=== PATIENT | male | born 1980 | race Caucasian/White ===

== ENCOUNTER → 2018-03-01 16:04 | Outpatient (REF) | payer MEDICAID, SELFPAY ==
[2018-03-01 19:18] LABS: Anion Gap 10.7 mmol/L (3-11); BUN 14 mg/dL (7-18); CO2 25.3 mmol/L (21.0-32.0); CREATININE 0.97 mg/dL (0.70-1.30); Calcium 8.8 mg/dL (8.5-10.1); Chloride 103 mmol/L (98-107); Glucose 102 mg/dL (70-100); Potassium 4.6 mmol/L (3.5-5.1); Sodium 139 mmol/L (136-145)
== END ==
LOC: NCHCN 16:04
PROVIDERS: PCP Internal Medicine; Visit Provider Physician Assistant Medical
DX: I10 Essential (primary) hypertension (principal)
CPT/HCPCS: 80048

== ENCOUNTER 2018-05-17 14:26 | Outpatient (CLI) | payer MEDICAID, SELFPAY ==
--- NOTE | 2018-05-17 12:05 | DI.RAD_ITS ---
SYMPTOM/DIAGNOSIS: COUGH, R05 PA AND LATERAL CHEST: Comparison is made with 04/08/10. The heart is normal in size. The lungs are clear. The mediastinal structures and pleura appear intact. CONCLUSION: Normal chest.
== END 2018-05-17 14:46 ==
PROVIDERS: PCP Internal Medicine; Visit Provider Physician Assistant Medical
DX: R05 Cough (principal)
CPT/HCPCS: 71046

== ENCOUNTER 2018-09-17 10:10 | Emergency (ER) | payer MEDICAID, SELFPAY ==
[2018-09-17 10:19] VITALS: BP 165/97; PULSE 80; RESP 16; TEMP 36.6; O2SAT 97
--- NOTE | 2018-09-17 10:31 | W.ED.GENAD ---
Discharge Plan Disposition Patient Disposition: HOME Discharge Details Chief Complaint: Orthopedic Clinical Impression: Severe sprain of right ankle Primary Care Provider: Ezekiel Pardo V ED Provider: Connor Bhatt Home Meds and New Rx's Prescriptions: Continued lisinopril 20 mg Tablet 20 mg PO DAILY RF: 0 Discharge Instructions Instructions: Ankle Sprain (ED) Additional Instructions: Please use ankle stabilizer and crutches. You may bear weight as tolerated. Please take ibuprofen over the counter - dose according to label. Please keep your ankle elevated when not ambulating. If pain persists or does not improve over the next 1 week, please follow-up with orthopedics. Please contact your primary care physician to arrange follow-up. Return to the ER for any worsening or new concerning symptoms. Referrals: Michael Smyth MD [ [facility] STAFF PHYSICIAN] - Medical Decision Making 38-year-old male presents with right ankle pain, swelling, tender lateral malleolus, after inversion injury, slip and fall on ice last night. Patient is neurovascularly intact distally. X-ray of the right ankle reviewed and interpreted by radiology: IMPRESSION: 1. Soft tissue swelling over the medial and lateral malleolus. 2. Distention of the ankle joint capsule consistent with posttraumatic joint effusion and/or ligamentous disruption. 3. 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 Patient offered anti-inflammatory and declined. I am concerned for moderate to severe ankle sprain. Plan to give orthopedic boot and crutches. Patient declined and provided informed refusal to boot. He is agreeable to using lace up ankle splint. He has crutches at home that he plans to use. Usual customary discharge instructions were provided including return to ED precautions and I advised that if pain is not improving over this week he should see an contract management specialist for further diagnostic testing and treatment. HPI General Mode of arrival: ambulatory. Date/Time Provider Initiated Documentation: 09/17/18 10:30. Limitations to Documentation: no limitations. Information obtained by: patient. HPI Narrative: 38-year-old male presents with chief complaint of ankle pain. Patient notes that last night he inverted his right ankle on ice and explains a popping sensation. Pain is now moderate. Improved with ibuprofen. Worse on palpation of his lateral ankle. No associated numbness. Related Data Home Medications Medication Instructions Recorded Confirmed lisinopril 20 mg PO DAILY 09/17/18 09/17/18 Allergies Allergy/AdvReac Type Severity Reaction Status Date / Time No Known Allergies Allergy Unverified 09/17/18 10:22 General Stated Complaint: Orthopedic FLORES: 4 Review of Systems Musculoskeletal Reports as per HPI and Denies tingling Neurologic Denies tingling and Denies paresthesias PFS Social History Smoking and Tabacco status: Never Exam Const General: cooperative, no acute distress, well developed, acute distress and not in distress Orientation: alert and awake Limitations: mental status not altered HENMT Head: normal to inspection and normocephalic Cardio Rate: regular rate Rhythm: regular rhythm Pulses: dorsalis pedis pulses present on the right 2+ Skin General skin exam: no rashes or lesions noted and dry skin Trauma: no lacerations Other: warm Neuro General: alert, awake and oriented x3 Extrem General: clubbing, cyanosis or edema noted Right lower extremity: lower leg Details: no tenderness and ankle Details: tenderness Location: of the lateral malleolus and swelling Details: laterally; no ecchymosis Course Vital Signs Temperature 36.6 C 09/17/18 10:19 Pulse 80 09/17/18 10:19 Respiratory Rate 16 09/17/18 10:19 Blood Pressure 165/97 H 09/17/18 10:19 Pulse Oximetry 97 09/17/18 10:19 Temperature 36.6 C 09/17/18 10:19 Temperature Source Skin 09/17/18 10:19 Pulse 80 09/17/18 10:19 Respiratory Rate 16 09/17/18 10:19 Respiratory Effort Non-Labored 09/17/18 10:19 Blood Pressure 165/97 H 09/17/18 10:19 Blood Pressure Position Sitting 09/17/18 10:19 Pulse Oximetry 97 09/17/18 10:19 Oxygen Delivery Method Room Air 09/17/18 10:19 Oxygen Flow Rate 0 09/17/18 10:19 Pain Level 1 09/17/18 10:19
--- NOTE | 2018-09-17 10:35 | ED.GENADUL_ITS ---
Discharge Plan Disposition Patient Disposition: HOME Discharge Details Chief Complaint: Orthopedic Clinical Impression: Severe sprain of right ankle Primary Care Provider: Ezekiel Pardo V ED Provider: Connor Bhatt Home Meds and New Rx's Prescriptions: Continued lisinopril 20 mg Tablet 20 mg PO DAILY RF: 0 Discharge Instructions Instructions: Ankle Sprain (ED) Additional Instructions: Please use ankle stabilizer and crutches. You may bear weight as tolerated. Please take ibuprofen over the counter - dose according to label. Please keep your ankle elevated when not ambulating. If pain persists or does not improve over the next 1 week, please follow-up with orthopedics. Please contact your primary care physician to arrange follow-up. Return to the ER for any worsening or new concerning symptoms. Referrals: Michael Smyth MD [ [facility] STAFF PHYSICIAN] - Medical Decision Making 38-year-old male presents with right ankle pain, swelling, tender lateral malleolus, after inversion injury, slip and fall on ice last night. Patient is neurovascularly intact distally. X-ray of the right ankle reviewed and interpreted by radiology: IMPRESSION: 1. Soft tissue swelling over the medial and lateral malleolus. 2. Distention of the ankle joint capsule consistent with posttraumatic joint effusion and/or ligamentous disruption. 3. 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 Patient offered anti-inflammatory and declined. I am concerned for moderate to severe ankle sprain. Plan to give orthopedic boot and crutches. Patient declined and provided informed refusal to boot. He is agreeable to using lace up ankle splint. He has crutches at home that he tori ns to use. Usual customary discharge instructions were provided including return to ED precautions and I advised that if pain is not improving over this week he should see an cleaning specialist for further diagnostic testing and treatment. HPI General Mode of arrival: ambulatory . Date/Time Provider Initiated Documentation: 09/17/18 10:30 . Limitations to Documentation: no limitations . Information obtained by: patient . HPI Narrative: 38-year-old male presents with chief complaint of ankle pain. Patient notes that last night he inverted his right ankle on ice and explains a popping sensation. Pain is now moderate. Improved with ibuprofen. Worse on palpation of his lateral ankle. No associated numbness. Related Data Home Medications Medication Instructions Recorded Confirmed lisinopril 20 mg PO DAILY 09/17/18 09/17/18 Allergies Allergy/AdvReac Type Severity Reaction Status Date / Time No Known Allergies Allergy Unverified 09/17/18 10:22 General Stated Complaint: Orthopedic FLORES: 4 Review of Systems Musculoskeletal Reports as per HPI and Denies tingling Neurologic Denies tingling and Denies paresthesias PFSH Social History Smoking and Tabacco status: Never Exam Const General: cooperative, no acute distress, well developed, acute distress and not in distress Orientation: alert and awake Limitations: mental status not altered HENMT Head: normal to inspection and normocephalic Cardio Rate: regular rate Rhythm: regular rhythm Pulses: dorsalis pedis pulses present on the right 2+ Skin General skin exam: no rashes or lesions noted and dry skin Trauma: no lacerations Other: warm Neuro General: alert, awake and oriented x3 Extrem General: clubbing, cyanosis or edema noted Right lower extremity: lower leg Details: no tenderness and ankle Details: tenderness Location: of the lateral malleolus and swelling Details: laterally; no ecchymosis Course Vital Signs Temperature 36.6 C 09/17/18 10:19 Pulse 80 09/17/18 10:19 Respiratory Rate 16 09/17/18 10:19 Blood Pressure 165/97 H 09/17/18 10:19 Pulse Oximetry 97 09/17/18 10:19 Temperature 36.6 C 09/17/18 10:19 Temperature Source Skin 09/17/18 10:19 Pulse 80 09/17/18 10:19 Respiratory Rate 16 09/17/18 10:19 Respiratory Effort Non-Labored 09/17/18 10:19 Blood Pressure 165/97 H 09/17/18 10:19 Blood Pressure Position Sitting 09/17/18 10:19 Pulse Oximetry 97 09/17/18 10:19 Oxygen Delivery Method Room Air 09/17/18 10:19 Oxygen Flow Rate 0 09/17/18 10:19 Pain Level 1 09/17/18 10:19
--- NOTE | 2018-09-17 10:59 | DI.RAD_ITS ---
SYMPTOM/DIAGNOSIS: PAIN, INVERSION INJURY RIGHT ANKLE: Three views. No definite acute fracture or dislocation is seen. Follow up as clinically appropriate. There does appear to be mild soft tissue swelling about the ankle. A joint effusion cannot be excluded. IMPRESSION: No definite acute fracture or dislocation. Follow up as clinically appropriate.
--- NOTE | 2018-09-17 11:06 | DI.VRAD_ITS ---
EXAM: XR Right Ankle Complete, 3 or more Views EXAM DATE/TIME: 09/17/2018 11:00 AM CLINICAL HISTORY: 38 years old, male; Injury or trauma; Fall; Initial encounter; Swelling (edema); Ankle; Right; Patient HX: Pain, ttp lateral, inversion injury. ; Additional info: S/P fall on ice. TECHNIQUE: XR Right ankle 3 or more views. COMPARISON: No relevant prior studies available. FINDINGS: Bones/joints: Distention of the ankle joint capsule consistent with posttraumatic joint effusion and/or ligamentous disruption. 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 Soft tissues: Soft tissue swelling over the medial and lateral malleolus. IMPRESSION: 1. Soft tissue swelling over the medial and lateral malleolus. 2. Distention of the ankle joint capsule consistent with posttraumatic joint effusion and/or ligamentous disruption. 3. 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 Dictated and Authenticated by: Roger Mejia MD. Ordering:SANJEEV Ryan MD
== END 2018-09-17 11:33 | disposition home or self-care (01) ==
PROVIDERS: Emergency Provider Student in an Organized Health Care Education/Training Program; PCP Physician Assistant Medical
DX: S93.401A Sprain of unspecified ligament of right ankle, initial encounter (principal); W00.0XXA Fall on same level due to ice and snow, initial encounter; X50.9XXA Other and unspecified overexertion or strenuous movements or postures, initial encounter; I10 Essential (primary) hypertension
CPT/HCPCS: 99283; 73610; L1902

== ENCOUNTER 2018-11-04 08:14 | Emergency (ER) | payer MEDICAID, SELFPAY ==
--- NOTE | 2018-11-04 08:20 | NUR.NOTE ---
for past 4-5 days PT has had continuous diarrhea as well as abdominal pain PT is concerned that he is dehydrated
[2018-11-04 08:22] VITALS: BP 120/68; PULSE 127; RESP 16; TEMP 36.6
--- NOTE | 2018-11-04 08:33 | ED.GENADUL_ITS ---
Discharge Plan Disposition Patient Disposition: HOME Condition: Improving Discharge Details Chief Complaint: Nausea/Vomit/Diar Clinical Impression: Diarrhea Primary Care Provider: Ezekeil Pardo V ED Provider: Roya Alford Home Meds and New Rx's Prescriptions: Continued lisinopril 20 mg Tablet 20 mg PO DAILY RF: 0 Discharge Instructions Instructions: Acute Diarrhea (ED), Nutrition Tips for Relief of Diarrhea (ED) Additional Instructions: Drink plenty of fluids get plenty of rest. Alternate Tylenol and Motrin as needed and directed for pain. Follow a diet of bananas, rice, applesauce, toast, pretzels or crackers over the next few days if diarrhea still present. Follow-up with your primary care doctor next week for reevaluation. Return immediately to the emergency department with any worsening or new concerning symptoms. Discharge Data Discharge Physician: Roya Alford Medical Decision Making 38-year-old male with history of hypertension who presents with vomiting x1 and multiple episodes of watery brown diarrhea daily for the past 6 days after recent travel from [place]. Patient concerned about food poisoning. Discussed with patient that this may be consistent with food poisoning or traveler's diarrhea. Heart rate 120s. Remainder vitals within normal limits. Patient appears nontoxic. His abdomen is soft and nontender. Due to frequent diarrhea and tachycardia, will place an IV, bolus IV fluids, check standard labs, stool culture for bacterial pathogens and giardia. We will also give a dose of Toradol. As patient's abdomen is soft and nontender, I do not see an indication for abdominal imaging at this time but will reassess at follow-up on labs. 0925 -- labs reviewed and unremarkable. Pt states he feels a little better. 2nd L ivf started. Will obtain a stool culture. Will reassess abdomen. Pt denies abdominal pain at this time. 1020 -- patient feels much better and is requesting to go home. Heart rate 80s. Reassessment of abdomen is soft, nontender. Patient was able to give stool sample. As he has no fever, any diarrhea, with a normal white blood cell count, I do not see an indication for antibiotics and patient is agreeable and he will be notified of stool culture results if positive. Patient denies any nausea. He is instructed to drink plenty of fluids, get plenty of rest, and follow the brat diet. He is instructed to follow-up with his primary care doctor for reevaluation and to return at anytime if worse. Medical Records Medical records reviewed: Yes I reviewed the patient's medical records. Lab Data Lab results reviewed: Yes I reviewed the patient's lab results. Laboratory Tests Range/Units 11/04/18 11/04/18 08:45 08:45 WBC (4.4-10.8) k/cumm 9.98 RBC (4.50-6.00) m/cumm 5.31 Hgb (13.5-17.5) g/dL 16.1 Hct (40.0-50.0) % 45.9 MCV (80-95) fL 86.4 MCH (27.0-33.0) pg 30.3 MCHC (32.0-36.0) g/dL 35.1 RDW (11.8-14.1) % 12.6 Plt Count (130-400) x1000/uL 273 MPV (8.0-11.0) fL 11.0 Immature Gran % 0.6 Neutrophils % 52.5 Lymphocytes % 28.0 Monocytes % 15.8 Eosinophils % 2.6 Basophils % 0.5 Absolute Neutrophils (1.2-6.7) k/cumm 5.24 Absolute Lymphocytes (1.2-3.4) k/cumm 2.79 Absolute Monocytes (0.11-0.7) k/cumm 1.58 H Absolute Eosinophils (0.0-0.7) k/cumm 0.26 Absolute Basophils (0.0-0.2) k/cumm 0.05 Sodium (136-145) mmol/L 134 L Potassium (3.5-5.1) mmol/L 3.5 Chloride (98-107) mmol/L 99 Carbon Dioxide (21.0-32.0) mmol/L 23.6 Anion Gap (3-11) mmol/L 11.4 H BUN (7-18) mg/dL 10 Creatinine (0.70-1.30) mg/dL 1.22 Estimated GFR/1.73 m2 (mL/min/1.73m2) >= 60.00 Glucose (70-100) mg/dL 115 H Calcium (8.5-10.1) mg/dL 7.8 L Total Bilirubin (0.2-1.0) mg/dL 0.7 AST (15-37) U/L 16 ALT (12-78) U/L 49 Alkaline Phosphatase (46-116) U/L 64 Total Protein (6.4-8.2) g/dL 6.7 Albumin (3.4-5.0) g/dL 3.1 L HPI General Mode of arrival: ambulatory . Date/Time Provider Initiated Documentation: 11/04/18 08:15 . Limitations to Documentation: no limitations . Information obtained by: patient . HPI Narrative: Patient is a 38-year-old male with a history of hypertension who presents with a complaint of diarrhea for the past 6 days. Patient states he traveled from [place] 6 days ago after he ate in the diner there and thinks he may have developed food poisoning. He states he vomited once on the day of onset but not since then but has had multiple episodes of diarrhea daily for the past 6 days. He states he has had watery brown diarrhea occurring every 10 to 20 minutes for the past 6 days. 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 Patient admits to feeling generally weak. He states he had some hot sweats and chills but denies any known fever. He admits to decreased urine output. He denies hematuria, or dysuria. He does admit to mild intermittent abdominal cramping and bloating and states that the discomfort is currently 2/10. He denies any recent antibiotics or sick contacts. Related Data Home Medications Medication Instructions Recorded Confirmed lisinopril 20 mg PO DAILY 09/17/18 11/04/18 Allergies Allergy/AdvReac Type Severity Reaction Status Date / Time No Known Allergies Allergy Unverified 11/04/18 08:25 General Stated Complaint: Nausea/Vomit/Diar FLORES: 4 Review of Systems Review of Systems All systems reviewed & are unremarkable except as noted in HPI and below Constitutional Reports as per HPI, Denies chills and Denies fever(s) Eyes Denies blurry vision ENT Denies dizziness, Denies sore throat and Denies throat swelling Cardiovascular Denies chest pain and Denies dyspnea Respiratory Denies cough and Denies dyspnea Gastrointestinal Reports abdominal pain, Reports diarrhea and Reports vomiting Genitourinary Denies hematuria and Denies dysuria Musculoskeletal Denies back pain and Denies numbness Integumentary/Breasts Denies lesions and Denies rash Neurologic Denies dizziness, Denies focal weakness and Denies numbness Allergic/Immunologic Denies throat swelling [facility] Medical History HTN (hypertension) (Chronic) Surgical History History of ankle surgery (Acute) Social History Smoking/Tobacco Use Status: Never Alcohol Intake: former Drug use: Never Substance use type: does not use Do you feel safe at home: Yes Do you feel safe in your relationship?: Yes Exam Const General: cooperative, healthy appearing and no acute distress HENMT Head: normal to inspection Face and sinus: normal facial exam Eyes General: appearance normal, both eyes and all related structures EOM: EOM intact bilaterally Neck Neck: normal visual inspection and No submandibular swelling Lymphatic: no lymphadenopathy noted Chest Chest: normal inspection of the chest and no tenderness Resp Effort & Inspection: normal respiratory effort and able to speak in complete sentences Auscultation: clear to auscultation bilaterally Cardio Rate: regular rate Rhythm: regular rhythm GI Inspection: normal to inspection Palpation: soft, not firm, not rigid and nontender Auscultation: normal bowel sounds Male General Exam: Yes normal external exam Skin General skin exam: no rashes or lesions noted Neuro General: alert, awake and oriented x3 Cognition: normal cognition Speech: speech normal Motor: muscle tone normal throughout Sensory Exam: no sensory deficits noted Extrem General: normal to inspection, full ROM, normal capillary refill and no edema Psych Appearance: grossly normal Mental Status: mental status grossly normal Speech and Movement: speech and movement normal Affect: normal affect Course Vital Signs Temperature 97.9 F 11/04/18 08:22 Pulse 127 H 11/04/18 08:22 Respiratory Rate 16 11/04/18 08:22 Blood Pressure 120/68 11/04/18 08:22 Temperature 97.9 F 11/04/18 08:22 Temperature Source Skin 11/04/18 08:22 Pulse 127 H 11/04/18 08:22 Respiratory Rate 16 11/04/18 08:22 Blood Pressure 120/68 11/04/18 08:22 Blood Pressure Position Sitting 04/26/19 08:22 Oxygen Delivery Method Room Air 11/04/18 08:22 Oxygen Flow Rate 0 11/04/18 08:22 Pain Level 3 11/04/18 08:22
[2018-11-04] MEDS: Normal Saline 1,000 ML 1000 ML IV (08:56)
[2018-11-04 09:01] LABS: Abs Immature Grans 0.06 k/cumm (0.0-0.09); Absolute Basophil Count 0.05 k/cumm (0.0-0.2); Absolute Eosinophil Count 0.26 k/cumm (0.0-0.7); Absolute Lymphocyte Count 2.79 k/cumm (1.2-3.4); Absolute Monocyte Count 1.58 k/cumm (0.11-0.7); Absolute Neutrophil Count 5.24 k/cumm (1.2-6.7); Basophils % 0.5; Eosinophils % 2.6; HCT 45.9 % (40.0-50.0); HGB 16.1 g/dL (13.5-17.5); Immature Grans % 0.6; Mean Corp. HGB Concentration 35.1 g/dL (32.0-36.0); Mean Corpuscular Hemoglobin 30.3 pg (27.0-33.0); Mean Corpuscular Volume 86.4 fL (80-95); Monocytes % 15.8; Neutrophils % 52.5; Platelet Count 273 x1000/uL (130-400); RBC 5.31 m/cumm (4.50-6.00); RBC Distribution Width 12.6 % (11.8-14.1); White Blood Cell Count 9.98 k/cumm (4.4-10.8)
[2018-11-04 09:12] LABS: ALT 49 U/L (12-78); AST 16 U/L (15-37); Albumin 3.1 g/dL (3.4-5.0); Alkaline Phosphatase 64 U/L (46-116); Anion Gap 11.4 mmol/L (3-11); BUN 10 mg/dL (7-18); Bilirubin, Total 0.7 mg/dL (0.2-1.0); CO2 23.6 mmol/L (21.0-32.0); CREATININE 1.22 mg/dL (0.70-1.30); Calcium 7.8 mg/dL (8.5-10.1); Chloride 99 mmol/L (98-107); Glucose 115 mg/dL (70-100); Potassium 3.5 mmol/L (3.5-5.1); Sodium 134 mmol/L (136-145); Total Protein 6.7 g/dL (6.4-8.2)
[2018-11-04] MEDS: Ketorolac 30 MG/ML VIAL IVP (09:31)
[2018-11-04 10:35] VITALS: BP 111/76; PULSE 88; RESP 16; TEMP 36.8; O2SAT 96
[2018-11-05 12:09] LABS: Campylobacter PCR SEE COMMENTS; Salmonella PCR SEE COMMENTS; Shiga Toxin PCR SEE COMMENTS; Shigella/Enteroinvasive Ecoli SEE COMMENTS
== END 2018-11-04 10:55 | disposition home or self-care (01) ==
PROVIDERS: Emergency Provider Physician Assistant; PCP Physician Assistant Medical
DX: R19.7 Diarrhea, unspecified (principal); R11.2 Nausea with vomiting, unspecified; R00.0 Tachycardia, unspecified; I10 Essential (primary) hypertension
CPT/HCPCS: 36415; 80053; 87329; 87505; 96361; 96374; 99284; 85025; J1885

== ENCOUNTER 2019-03-06 16:29 | Outpatient (REF) | payer MEDICAID, SELFPAY ==
[2019-03-06 19:09] LABS: Anion Gap 12.3 mmol/L (3-11); BUN 16 mg/dL (7-18); CO2 24.7 mmol/L (21.0-32.0); CREATININE 0.95 mg/dL (0.70-1.30); Calcium 8.7 mg/dL (8.5-10.1); Chloride 104 mmol/L (98-107); Glucose 94 mg/dL (70-100); Potassium 4.2 mmol/L (3.5-5.1); Sodium 141 mmol/L (136-145)
== END 2019-03-06 16:49 ==
LOC: NCHCN 16:29
PROVIDERS: PCP Physician Assistant Medical; Visit Provider Nurse Practitioner Family
DX: I10 Essential (primary) hypertension (principal)
CPT/HCPCS: 80048

== ENCOUNTER 2020-04-18 11:29 | Outpatient (REF) | payer MEDICAID, SELFPAY ==
[2020-04-18 19:56] LABS: Anion Gap 10.4 mmol/L (3-11); BUN 12 mg/dL (7-18); CO2 26.6 mmol/L (21.0-32.0); CREATININE 0.93 mg/dL (0.70-1.30); Calcium 9.3 mg/dL (8.5-10.1); Calculated LDL 123 mg/dL (<100); Chloride 100 mmol/L (98-107); Cholesterol 198 mg/dL (<200); Glucose 107 mg/dL (74-106); HDL Cholesterol 61 mg/dL (40-60); Potassium 4.5 mmol/L (3.5-5.1); Sodium 137 mmol/L (136-145); Triglyceride 71 mg/dL (<150)
== END 2020-04-18 11:49 ==
LOC: NCHCN 11:29
PROVIDERS: PCP Physician Assistant Medical; Visit Provider Nurse Practitioner Family
DX: I10 Essential (primary) hypertension (principal)
CPT/HCPCS: 80048; 80061

== ENCOUNTER 2020-12-10 11:11 | Outpatient (REF) | payer MEDICAID, SELFPAY ==
[2020-12-10 16:01] LABS: Hemoglobin A1C 5.3 % (<5.7)
[2020-12-10 16:05] LABS: ALT 42 U/L (16-63); AST 22 U/L (15-37); Albumin 4.1 g/dL (3.4-5.0); Alkaline Phosphatase 79 U/L (46-116); Anion Gap 12.3 mmol/L (3-11); BUN 11 mg/dL (7-18); Bilirubin, Total 0.4 mg/dL (0.2-1.0); CO2 25.7 mmol/L (21.0-32.0); CREATININE 0.8 mg/dL (0.70-1.30); Calcium 9.8 mg/dL (8.5-10.1); Calculated LDL 117 mg/dL (<100); Chloride 101 mmol/L (98-107); Cholesterol 204 mg/dL (<200); Glucose 106 mg/dL (74-106); HDL Cholesterol 62 mg/dL (40-60); Potassium 4.5 mmol/L (3.5-5.1); Sodium 139 mmol/L (136-145); Triglyceride 127 mg/dL (<150)
== END 2020-12-10 11:12 | disposition home or self-care (01) ==
LOC: NCHCN 11:11
PROVIDERS: PCP Physician Assistant Medical; Visit Provider Nurse Practitioner Family
DX: I10 Essential (primary) hypertension (principal); R73.9 Hyperglycemia, unspecified
CPT/HCPCS: 80053; 80061; 83036

== ENCOUNTER 2021-01-28 22:09 | Emergency (ER) | payer MEDICAID, SELFPAY ==
[2021-01-28 22:14] VITALS: BP 142/94; PULSE 84; RESP 16; TEMP 36.4; O2SAT 98
--- NOTE | 2021-01-28 22:21 | ED.GENADUL_ITS ---
Discharge Plan Disposition Patient Disposition: HOME Condition: Good Discharge Details Clinical Impression: Acute pain of right foot, Gout Primary Care Provider: Ezekiel Pardo V ED Provider: Drew Alvarenga Home Meds and New Rx's Prescriptions: New cephalexin 500 mg tablet 500 mg PO QID 5 Days Qty: 20 RF: 0 Continued diazepam [Valium] 10 mg tablet 10 mg PO ONCE PRN (Reason: premedication) Qty: 1 RF: 0 tramadol 50 mg tablet 50 mg PO Q6H PRN (Reason: pain) Qty: 12 RF: 0 lisinopril 20 mg Tablet 20 mg PO DAILY RF: 0 Discharge Instructions Instructions: Gout (ED) Additional Instructions: At this time your symptoms appear consistent with a gout attack. There is no evidence of cellulitis/infection at this point. Please avoid any meat, cheese, or caviar. Please take 800 mg of ibuprofen every 6 hours and 1000 mg of Tylenol every 6 hours for the next 2 to 3 days. These are the maximum doses. If you notice any change in your symptoms, or any fever or chills, spreading of redness up your leg, or worsening pain consider taking the antibiotic as directed. Otherwise I would not recommend taking antibiotic as at this time there is no evidence of infection. If your pain does persist for greater than a week you may need further evaluation and/or x-ray. If you notice any worsening of your symptoms, or any new symptoms such as vomiting, diarrhea, fever, chills, shortness of breath, chest pain, numbness, weakness, or fainting , please return immediately to the emergency department for reevaluation. Please follow up with your primary care provider as soon as possible for reassessment and reevaluation. As always, it was a pleasure participating in your medical care today. Referrals: Ezekiel Pardo V [Primary Care Provider] - Medical Decision Making This is a pleasant 40-year-old male with a past medical history of gout, who presents today for evaluation of pain in his right foot. Patient states that earlier this afternoon he had an achiness that is started and persisted in his foot and has gotten worse. He denies fever or chills. He denies any injury. He denies any excess or extra activity recently that would suggest a fracture or strain. Patient does admit to eating a notable amount of cheese over the last few days. He denies any caviar or any other meats otherwise compared to normal. There no other complaints at this time. No other modifying factors. Physical exam is very reassuring. No calf tenderness or redness. Foot demonstrates no asymmetric warmth or redness that I can appreciate at this time. Patient does have a mild amount of tenderness in the dorsal area on his right foot. However no plantar tenderness or tenderness in the toes or ankle. Symptoms at this time do not appear consistent with cellulitis, however with his history of gout, in conjunction with his notable cheese consumption recently I am concerned for acute gout/pseudogout today. No clinical evidence of DVT. No component of history indicative of trauma that would suggest a fracture. Exam also does not suggest clinical evidence of fracture. No indication for x-ray imaging at this time. Recommend dietary changes, will give Toradol and Tylenol here. Out of an abundance of caution we will give a prescription for Keflex for the patient to use if he does develop worsening redness, fever or chills. Discussed red flags which to return. I have extensively reviewed the treatment plan and discharge instructions with the patient. I have addressed all patient concerns at this time. The patient was made aware of what symptoms to monitor for that would warrant a return to the emergency department. Discussed the plan with the patient, they demonstrate verbal understanding and agreement with our assessment and plan at this time. The documentation in this chart was dictated using [employer] dictation software. Please excuse any dictation errors. HPI General Date/Time Provider Initiated Documentation: 01/28/21 22:11 . HPI Narrative: This is a pleasant 40-year-old male with a past medical history of gout, who presents today for evaluation of pain in his right foot. Patient states that earlier this afternoon he had an achiness that is started and persisted in his foot and has gotten worse. He denies fever or chills. He denies any injury. He denies any excess or extra activity recently that would suggest a fracture or strain. Patient does admit to eating a notable amount of cheese over the last few days. He denies any caviar or any other meats otherwise compared to normal. There no other complaints at this time. No other modifying factors. Related Data Home Medications Medication Instructions Recorded Confirmed lisinopril 20 mg PO DAILY 09/17/18 01/28/21 diazepam 10 mg tablet 10 mg PO ONCE PRN #1 tab 04/06/19 01/28/21 tramadol 50 mg tablet 50 mg PO Q6H PRN #12 tab 05/19/19 05/19/19 cephalexin 500 mg PO QID 5 Days #20 tab 01/28/21 Previous Rx's Medication Instructions Recorded diazepam 10 mg tablet 10 mg PO ONCE PRN #1 tab 04/06/19 tramadol 50 mg tablet 50 mg PO Q6H PRN #12 tab 05/19/19 cephalexin 500 mg PO QID 5 Days #20 tab 01/28/21 Allergies Allergy/AdvReac Type Severity Reaction Status Date / Time No Known Allergies Allergy Unverified 04/06/19 10:26 General Stated Complaint: Orthopedic FLORES: 3 Review of Systems All systems reviewed & are unremarkable except as noted in HPI and below PFSH Medical History HTN (hypertension) Surgical History History of ankle surgery Social History Smoking/Tobacco Use Status: Never Smoking risk assessment performed?: Yes Alcohol Intake: former Drug use: Never Substance use type: does not use Do you feel safe at home: Yes Do you feel safe in your relationship?: Yes Exam Narrative Exam Narrative: 1.Const: Well-nourished, Well-developed, appearing stated age 2.Eyes: PERRL, no conjunctival injection, and symmetrical lids. 3.ENT: Atraumatic external nose and ears. Moist MM. Neck: Symmetric, trachea midline, No thyromegaly. 4.CVS: +S1/S2, No murmurs or gallops. Peripheral pulses 2+ and equal in all extremities. Brisk capillary refill in all extremities. 5.RESP: Unlabored respiratory effort. Clear to auscultation bilaterally. No wheezes rales or rhonchi 6.GI: Soft, Nontender/Nondistended, No hepatosplenomegaly. No guarding or rebound. 7.MSK: Normocephalic/Atraumatic, Extremities w/o deformity. Evaluation of the right foot demonstrates no significant swelling, no asymmetric warmth compared to the left foot. There is minimal tenderness on the dorsal surface of the arch on the right foot, no pain on the lateral aspect, the plantar aspect, the toes, or the ankle. Pain is slightly worsened with dorsiflexion of the toes. No calf tenderness, no pain in the ankle. Normal sensation throughout the foot, good capillary refill less than 3 seconds. Normal movement. 8.Skin: Warm, Dry. No rashes or lesions. Please see musculoskeletal 9.Neuro: peripheral equipment operator II-XII grossly intact. Sensation grossly intact, no focal neurologic deficits. 10.Psych: (AAO) x3. Appropriate mood and affect Course Vital Signs Vital signs: Vital Signs Temperature 36.4 C L 01/28/21 22:14 Pulse 84 01/28/21 22:14 Respiratory Rate 16 01/28/21 22:14 Blood Pressure 142/94 H 01/28/21 22:14 Pulse Oximetry 98 01/28/21 22:14 Temperature 36.4 C L 01/28/21 22:14 Temperature Source Tympanic 01/28/21 22:14 Pulse 84 01/28/21 22:14 Respiratory Rate 16 01/28/21 22:14 Blood Pressure 142/94 H 01/28/21 22:14 Blood Pressure Position Sitting 01/28/21 22:14 Pulse Oximetry 98 01/28/21 22:14 Oxygen Delivery Method Room Air 01/28/21 22:14 Oxygen Flow Rate 0 01/28/21 22:14 Pain Level 4 01/28/21 22:14
[2021-01-28] MEDS: Ketorolac 30 MG/ML VIAL IM (22:28)
[2021-01-28] MEDS: Acetaminophen 500 MG TAB 1000 MG PO (22:28)
[2021-01-28 22:29] VITALS: BP 142/94; PULSE 84; RESP 16; TEMP 36.4; O2SAT 98
== END 2021-01-28 22:30 | disposition home or self-care (01) ==
PROVIDERS: Emergency Provider Student in an Organized Health Care Education/Training Program; PCP Physician Assistant Medical
DX: M79.671 Pain in right foot (principal); M10.9 Gout, unspecified
CPT/HCPCS: 96372; 99284; 99283; J1885

== ENCOUNTER 2021-12-09 15:38 | Outpatient (REF) | payer MEDICAID, SELFPAY ==
[2021-12-09 19:45] LABS: Anion Gap 10.2 mmol/L (3-11); BUN 15 mg/dL (7-18); CO2 26.8 mmol/L (21.0-32.0); CREATININE 0.9 mg/dL (0.70-1.30); Calcium 9.7 mg/dL (8.5-10.1); Chloride 101 mmol/L (98-107); Glucose 99 mg/dL (74-106); Potassium 4.3 mmol/L (3.5-5.1); Sodium 138 mmol/L (136-145); TSH (W/Ref FT4) 2.04 uIU/mL (0.36-3.74)
== END 2021-12-09 15:39 | disposition home or self-care (01) ==
LOC: NCHCN 15:38
PROVIDERS: PCP Physician Assistant Medical; Visit Provider Physician Assistant
DX: I10 Essential (primary) hypertension (principal); Z00.00 Encounter for general adult medical examination without abnormal findings
CPT/HCPCS: 80048; 84443

== ENCOUNTER 2023-08-24 13:11 | Outpatient (REF) | payer MEDICAID, SELFPAY ==
[2023-08-24 19:23] LABS: Hemoglobin A1C 5.5 % (<5.7)
[2023-08-24 19:28] LABS: ALT 33 U/L (16-63); AST 24 U/L (15-37); Albumin 4.1 g/dL (3.4-5.0); Alkaline Phosphatase 63 U/L (46-116); Anion Gap 10.2 mmol/L (3-11); BUN 15 mg/dL (7-18); Bilirubin, Total 0.4 mg/dL (0.2-1.0); CO2 24.8 mmol/L (21.0-32.0); CREATININE 0.9 mg/dL (0.70-1.30); Calcium 9.4 mg/dL (8.5-10.1); Calculated LDL 125 mg/dL (<100); Chloride 102 mmol/L (98-107); Cholesterol 190 mg/dL (<200); Estimated GFR 109.36 (mL/min/1.73m2); Glucose 113 mg/dL (74-106); HDL Cholesterol 54 mg/dL (40-60); Potassium 4.5 mmol/L (3.5-5.1); Sodium 137 mmol/L (136-145); Total Protein 7.9 g/dL (6.4-8.2); Triglyceride 58 mg/dL (<150)
[2023-08-25 20:55] LABS: Hepatitis C Ab w Rflx HCV PCR Negative (Negative)
[2023-08-25 20:58] LABS: HIV-1/2 Ag & Ab Screen Negative (Negative)
== END 2023-08-24 13:12 | disposition home or self-care (01) ==
LOC: NCHCN 13:11
PROVIDERS: PCP Physician Assistant Medical; Visit Provider Physician Assistant
DX: I10 Essential (primary) hypertension (principal); R73.09 Other abnormal glucose; E66.01 Morbid (severe) obesity due to excess calories; Z11.4 Encounter for screening for human immunodeficiency virus [HIV]; Z11.59 Encounter for screening for other viral diseases
CPT/HCPCS: 80053; 80061; 86803; 87389; 83036; 84443

== ENCOUNTER 2024-09-12 10:13 | Outpatient (REF) | payer MEDICAID, SELFPAY ==
[2024-09-12 19:25] LABS: ALT 37 U/L (16-63); AST 23 U/L (15-37); Alkaline Phosphatase 69 U/L (46-116); Anion Gap 9.5 mmol/L (3-11); BUN 13 mg/dL (7-18); Bilirubin, Total 0.51 mg/dL (0.2-1.0); CO2 26.5 mmol/L (21.0-32.0); Calcium 9.8 mg/dL (8.5-10.1); Chloride 103 mmol/L (98-107); Estimated GFR 95.18 (mL/min/1.73m2); Glucose 116 mg/dL (74-106); Potassium 4.6 mmol/L (3.5-5.1); Sodium 139 mmol/L (136-145)
== END 2024-09-12 10:14 | disposition home or self-care (01) ==
LOC: NCHCN 10:13
PROVIDERS: PCP Physician Assistant Medical; Visit Provider Physician Assistant
DX: I10 Essential (primary) hypertension (principal)
CPT/HCPCS: 80053